=== PATIENT | male | born 1995 | race Caucasian/White ===

== ENCOUNTER 2024-08-13 14:34 | Emergency (ER) | payer SELFPAY ==
[2024-08-13 14:41] VITALS: BP 162/109; PULSE 50; RESP 16; TEMP 36.4; O2SAT 99
--- NOTE | 2024-08-13 15:19 | W.ED.DENTAL ---
HPI - Dental/Oral General: Chief complaint: Dental/Oral Stated complaint: jaw pain Time Seen by Provider: 08/13/24 14:38 Source: patient Mode of arrival: ambulatory Limitations: no limitations History of Present Illness: Patient is a 29-year-old male presents to ED today with complaint of dental pain. Patient states over the past week he has noticed pain to his bilateral lower molars. He states he has significant decay to these teeth. He states he had a dentist but they retired. He did schedule an appointment with another office but this is not until September. Patient states he has been on several rounds of antibiotics and this is not helping with his tooth pain. He is having pain across his jaw line. He has not noticed any swelling into his neck. Patient states he is not having any trouble speaking or swallowing. He states he mainly is here requesting something to help with his pain and allow him to sleep as his teeth throb all night long. Complaint: tooth pain Onset (ago): day(s) Duration: constant Severity: severe Severity scale (1-10): 10 Relieving factors: nothing Exacerbating factors: nothing Context: history of dental caries and poor dental care Associated symptoms: Reports no associated symptoms; Denies ear or mastoid pain, fever(s) or odynophagia Treatment prior to arrival: topical analgesic Related Data Previous Rx's Medication Instructions Recorded tramadol 50 mg tablet 50 mg PO Q6H PRN pain #14 tabs 08/13/24 Allergies Allergy/AdvReac Type Severity Reaction Status Date / Time No Known Allergies Allergy Verified 08/13/24 14:45 Review of Systems Const: Denies: fever(s), chills, body aches, fatigue or malaise ENMT: Reports: dental pain; Denies: throat pain, uvular edema, enlarged tonsils, odynophagia, hoarseness, swelling of lips/tongue, oral sores, bleeding gums, ear or mastoid pain, nasal discharge, nasal congestion or sinus pain Card: Denies: chest pain Resp: Denies: dyspnea GI: Denies: nausea or vomiting Musc: Denies: neck pain Neuro: Denies: headache(s) Physical Exam Const: COMMON NORMALS: no acute distress, average body habitus, no limitations, healthy appearing, alert and well nourished HENMT: COMMON NORMALS: external ears normal, EAC's normal, TM's normal bilaterally and Normal external nose present FACE & SINUS: normal facial exam; no sinus tenderness, no erythema, no edema and no fluctuance NOSE: Normal external nose present EXTERNAL EAR: Yes external ears normal EXTERNAL AUDITORY CANAL: EAC's normal TYMPANIC MEMBRANE: TM's normal bilaterally MOUTH: Normal oral and palatal mucosa present and lip normal TEETH & GINGIVA: Yes caries and Yes other (significant decay involving several L and R molar teeth; no abscess) THROAT: posterior oropharynx normal and tonsils normal; no uvular edema Neck/C-Spine: COMMON NORMALS: no lymphadenopathy GENERAL: Yes normal visual inspection, No anterior neck swelling and No submandibular swelling Neuro: SENSORIUM/ORIENTATION: Yes alert Course Vital Signs: Vital signs: Vital Signs Temperature 97.6 F 08/13/24 14:41 Pulse Rate 50 L 08/13/24 14:41 Respiratory Rate 16 08/13/24 15:21 Blood Pressure 162/109 08/13/24 14:41 Pulse Oximetry 99 08/13/24 14:41 Oxygen Delivery Me thod Room Air 08/13/24 14:41 MDM - Dental/Oral Medical Decision Making No red flags on history or physical examination. Recommend dental follow-up as soon as possible. Discussed how dental nerve pain is hard to treat even with pain medication. He can continue topical analgesics, dental wax, warm compresses, etc. Return precautions discussed. Differential Diagnosis Likely dental caries and toothache Medical Records I reviewed the patient's medical records. No radiology studies performed this visit Discharge Plan Discharge Patient Disposition: Home Clinical Impression: Toothache, Dental caries Condition: Stable Prescriptions: New tramadol 50 mg tablet 50 mg PO Q6H PRN (Reason: pain) Qty: 14 0RF Discharge Orders: Discharge ED (Routine); Ordered 08/13/24 Ordered By: Roro Serrano Patient Instructions: Dental Caries (Cavities), Toothache (ED), Opioid Safety, Pain Management Activity Restrictions/Additional Instructions: You may return to the emergency department for swelling involving your face or neck, trouble swallowing or speaking, fevers, or any other concerns you may have. Coding Level of Care Code ED [employer] for Rusty Evans
[2024-08-13 15:21] VITALS: RESP 16
[2024-08-13 15:37] VITALS: BP 136/76; PULSE 49; O2SAT 95
== END 2024-08-13 15:38 | disposition home or self-care (01) ==
PROVIDERS: Emergency Provider Physician Assistant
DX: K08.89 Other specified disorders of teeth and supporting structures (principal); K02.9 Dental caries, unspecified
CPT/HCPCS: 99283